=== PATIENT | male | born 1985 | race Caucasian/White ===

== ENCOUNTER 2016-09-24 10:27 | Observation (INO) | payer BC ==
[2016-09-24] MEDS ORDERED: ASPIRIN 81 MG CHEW PO STA (11:18)
[2016-09-24] MEDS ORDERED: NITROGLYCERIN OINT 1 INCH/GM PACKET TOPICAL STA (11:18)
[2016-09-24] MEDS ORDERED: MAG HYDROX/AL HYDROX/SIMETH 30 ML, HYOSCYAMINE ELIXIR 10 ML, CIMETIDINE HCL 300 MG, LID... PO STA ×4 (11:19)
[2016-09-24 11:46] LABS: Basophils % (A) 0 %; CH 29.7; CHCM 35.8; Eosinophils % (A) 1 %; HCT 43.8 % (39.0-53.0); HDW 2.65; HGB 15.5 gm/dL (13.0-17.5); Luc # (Auto) 0.13; Luc % (Auto) 2; Lymphocytes # (A) 1.1 k/uL (1.0-4.8); Lymphocytes % (A) 20 %; MCH 29.5 pg (25.0-35.0); MCHC 35.4 g/dL (31.0-37.0); MCV 83.3 fL (80.0-100.0); Mean Platelet Volume 6.8; Monocytes # (A) 0.6 k/uL (0-1.0); Monocytes % (A) 11 %; Neutrophils # (A) 3.6 k/uL (1.3-7.7); Neutrophils % (A) 66 %; RBC 5.25 m/uL (4.30-5.90); RDW 12.5 % (11.5-15.5); WBC 5.5 k/uL (3.8-10.6)
[2016-09-24 11:53] LABS: ALT 39 U/L (21-72); AST 31 U/L (17-59); Alkaline Phosphatase 68 U/L (38-126); Amylase 40 U/L (30-110); Anion Gap 11 mmol/L; Blood Urea Nitrogen 13 mg/dL (9-20); Calcium 9.5 mg/dL (8.4-10.2); Carbon Dioxide 27 mmol/L (22-30); Chloride 102 mmol/L (98-107); Glucose 90 mg/dL (74-99); Magnesium 1.8 mg/dL (1.6-2.3); Non-African American GFR(MDRD) >60 (>60 ml/min/1.73 sqM); Potassium 3.9 mmol/L (3.5-5.1); Sodium 140 mmol/L (137-145); Total Bilirubin 1.2 mg/dL (0.2-1.3); Total Protein 7.8 g/dL (6.3-8.2)
--- NOTE | 2016-09-24 11:57 | XR ---
EXAMINATION TYPE: XR chest 2V DATE OF EXAM: 09/24/2016 COMPARISON: NONE HISTORY: Chest pain TECHNIQUE: Frontal and lateral views of the chest are obtained. FINDINGS: There is no focal air space opacity. No evidence for pneumothorax. No pleural effusion. The cardiac silhouette size is within normal limits. The osseous structures are grossly intact. IMPRESSION: 1. No acute cardiopulmonary process.
[2016-09-24 12:05] LABS: Creatine Kinase 53 U/L (55-170)
[2016-09-24 12:15] LABS: INR 1.2 (<1.1); Partial Thromboplastin Time 25.4 sec (22.0-30.0); Prothrombin Time 12.2 sec (9.0-12.0)
[2016-09-24 12:18] LABS: Creatine Kinase MB <0.2 ng/mL (0.0-2.4); Troponin I <0.012 ng/mL (0.000-0.034)
--- NOTE | 2016-09-24 14:18 | ED ---
General Adult HPI - General Chief complaint: Recheck/Abnormal Lab/Rx Stated complaint: heartburn/pain in right side of neck Time Seen by Provider: 09/24/16 11:03 Source: patient Mode of arrival: ambulatory Limitations: no limitations - History of Present Illness Initial comments: 31-year-old white male presents with a complaint of some chest pain which is described as a midsternal burning type of sensation. This started last evening. The patient also has numbness and pain going down his right arm. He denies any previous similar incidents. He has had occasional shortness of breath. He denies any previous cardiac history but does have a family history. His grandfather apparently had a myocardial infarction in his 50s. He denies any leg pain or swelling or history of DVT or PE. No other complaints or modifying factors. - Related Data Home Medications Medication Instructions Recorded Confirmed No Known Home Medications [No 09/24/16 09/24/16 Known Home Medications] Allergies Allergy/AdvReac Type Severity Reaction Status Date / Time No Known Allergies Allergy Verified 09/24/16 10:45 Review of Systems ROS Statement: Those systems with pertinent positive or pertinent negative responses have been documented in the HPI. ROS Other: All systems not noted in ROS Statement are negative. Past Medical History Past Medical History: No Reported History History of Any Multi-Drug Resistant Organisms: None Reported Past Surgical History: No Surgical Hx Reported Past Psychological History: No Psychological Hx Reported Smoking Status: Never smoker Past Alcohol Use History: None Reported Past Drug Use History: None Reported General Exam - General Exam Comments Initial Comments: GENERAL: The patient is well nourished and well hydrated. VITAL SIGNS: Heart rate, blood pressure, respiratory rate reviewed as recorded in nurse's notes. EYES: Pupils are round and reactive. Extraocular movements are intact. No conjunctival / lid redness or swelling. ENT: No external evidence of injury, swelling, or ecchymosis. Airway is patent. Throat is clear. NECK: Nontender. No swelling or evidence of injury. No subcutaneous emphysema. Trachea is midline. No thyroid mass. HEART: Regular rate and rhythm. Good peripheral pulses. LUNGS/CHEST: Breath sounds clear and equal bilaterally. No rales, rhonchi, or wheezes. No ecchymosis, subcutaneous emphysema, or tenderness. ABDOMEN: Abdomen soft without tenderness. No palpable masses or organomegaly. No peritoneal signs. No abdominal wall swelling or ecchymosis. EXTREMITIES: No extremity tenderness. Normal muscle tone and function. No thoracolumbar tenderness. NEUROLOGIC: Sensation is grossly intact. Cranial nerve exam reveals face is symmetrical, tongue is midline, speech is clear. SKIN: No abrasions or ecchymosis is noted. No induration or masses noted. PSYCHIATRIC: Alert and oriented. Appropriate behavior and judgment. Limitations: no limitations Course Vital Signs 09/24/16 09/24/16 09/24/16 10:39 11:02 11:35 Temperature 97.3 F L Pulse Rate 70 83 78 Respiratory 17 16 20 Rate Blood Pressure 134/83 133/80 123/83 O2 Sat by Pulse 99 Oximetry 09/24/16 14:07 Temperature 98.2 F Pulse Rate 66 Respiratory 16 Rate Blood Pressure 129/74 O2 Sat by Pulse 98 Oximetry Medical Decision Making - Medical Decision Making The patient was seen and examined. All diagnostics were reviewed. The EKG shows a normal sinus rhythm at a rate of 72. No acute ST-T wave changes are identified. The SD interval is 142, QRS duration is 92, and QTC intervals 420. The chest x-ray does not show any acute processes. The cardiac profile labs are within normal limits. He is feeling somewhat improved after aspirin and Nitropaste and a GI cocktail. The possibility of acute coronary syndrome still is possible. The possibility of reflux is also a possibility. It is felt as though he did require admission to the hospital for further treatment. The case is discussed with Dr. Stoddard and she is agreeable to admission and initial orders are obtained. - Lab Data Result diagrams: 09/24/16 11:30 09/24/16 11:30 Lab Results 09/24/16 09/24/16 09/24/16 Range/Units 11:30 11:30 11:30 WBC 5.5 (3.8-10.6) k/uL RBC 5.25 (4.30-5.90) m/uL Hgb 15.5 (13.0-17.5) gm/dL Hct 43.8 (39.0-53.0) % MCV 83.3 (80.0-100.0) fL MCH 29.5 (25.0-35.0) pg MCHC 35.4 (31.0-37.0) g/dL RDW 12.5 (11.5-15.5) % Plt Count 175 (150-450) k/uL Neutrophils % 66 % Lymphocytes % 20 % Monocytes % 11 % Eosinophils % 1 % Basophils % 0 % Neutrophils # 3.6 (1.3-7.7) k/uL Lymphocytes # 1.1 (1.0-4.8) k/uL Monocytes # 0.6 (0-1.0) k/uL Eosinophils # 0.0 (0-0.7) k/uL Basophils # 0.0 (0-0.2) k/uL PT (9.0-12.0) sec INR (<1.1) APTT (22.0-30.0) sec Sodium 140 (137-145) mmol/L Potassium 3.9 (3.5-5.1) mmol/L Chloride 102 (98-107) mmol/L Carbon Dioxide 27 (22-30) mmol/L Anion Gap 11 mmol/L BUN 13 (9-20) mg/dL Creatinine 1.04 (0.66-1.25) mg/dL Est GFR (MDRD) Af Amer >60 (>60 ml/min/1.73 sqM) Est GFR (MDRD) Non-Af >60 (>60 ml/min/1.73 sqM) Glucose 90 (74-99) mg/dL Calcium 9.5 (8.4-10.2) mg/dL Magnesium 1.8 (1.6-2.3) mg/dL Total Bilirubin 1.2 (0.2-1.3) mg/dL AST 31 (17-59) U/L ALT 39 (21-72) U/L Alkaline Phosphatase 68 (38-126) U/L Total Creatine Kinase 53 L (55-170) U/L CK-MB (CK-2) <0.2 (0.0-2.4) ng/mL CK-MB (CK-2) Rel Index Troponin I <0.012 (0.000-0.034) ng/mL Total Protein 7.8 (6.3-8.2) g/dL Albumin 4.8 (3.5-5.0) g/dL Amylase 40 (30-110) U/L Lipase 38 (23-300) U/L 09/24/16 Range/Units 11:30 WBC (3.8-10.6) k/uL RBC (4.30-5.90) m/uL Hgb (13.0-17.5) gm/dL Hct (39.0-53.0) % MCV (80.0-100.0) fL MCH (25.0-35.0) pg MCHC (31.0-37.0) g/dL RDW (11.5-15.5) % Plt Count (150-450) k/uL Neutrophils % % Lymphocytes % % Monocytes % % Eosinophils % % Basophils % % Neutrophils # (1.3-7.7) k/uL Lymphocytes # (1.0-4.8) k/uL Monocytes # (0-1.0) k/uL Eosinophils # (0-0.7) k/uL Basophils # (0-0.2) k/uL PT 12.2 H (9.0-12.0) sec INR 1.2 (<1.1) APTT 25.4 (22.0-30.0) sec Sodium (137-145) mmol/L Potassium (3.5-5.1) mmol/L Chloride (98-107) mmol/L Carbon Dioxide (22-30) mmol/L Anion Gap mmol/L BUN (9-20) mg/dL Creatinine (0.66-1.25) mg/dL Est GFR (MDRD) Af Amer (>60 ml/min/1.73 sqM) Est GFR (MDRD) Non-Af (>60 ml/min/1.73 sqM) Glucose (74-99) mg/dL Calcium (8.4-10.2) mg/dL Magnesium (1.6-2.3) mg/dL Total Bilirubin (0.2-1.3) mg/dL AST (17-59) U/L ALT (21-72) U/L Alkaline Phosphatase (38-126) U/L Total Creatine Kinase (55-170) U/L CK-MB (CK-2) (0.0-2.4) ng/mL CK-MB (CK-2) Rel Index Troponin I (0.000-0.034) ng/mL Total Protein (6.3-8.2) g/dL Albumin (3.5-5.0) g/dL Amylase (30-110) U/L Lipase (23-300) U/L Disposition Clinical Impression: Chest pain, Unstable angina Disposition: ADMITTED IP TO THIS [facility] Condition: Fair Time of Disposition: 14:18 Decision Date: 09/24/16 Decision Time: 14:18
[2016-09-24] MEDS ORDERED: NITROGLYCERIN SL TABS 0.4 MG TAB SUBLINGUAL PRN (14:19)
[2016-09-24] MEDS: HEPARIN SODIUM,PORCINE 5,000 UNIT/ML 1 ML VIAL SQ SCH (17:21)
[2016-09-24] MEDS: NITROGLYCERIN OINT 1 INCH/GM PACKET TOPICAL SCH (17:28)
[2016-09-24 18:48] LABS: Creatine Kinase 46 U/L (55-170)
[2016-09-24 19:00] LABS: Creatine Kinase MB <0.2 ng/mL (0.0-2.4); Troponin I <0.012 ng/mL (0.000-0.034)
[2016-09-25] MEDS: HEPARIN SODIUM,PORCINE 5,000 UNIT/ML 1 ML VIAL SQ SCH ×2 (00:01→08:43)
[2016-09-25 00:24] LABS: Creatine Kinase 41 U/L (55-170)
[2016-09-25 00:37] LABS: Creatine Kinase MB <0.2 ng/mL (0.0-2.4); Troponin I <0.012 ng/mL (0.000-0.034)
[2016-09-25] MEDS: NITROGLYCERIN OINT 1 INCH/GM PACKET TOPICAL SCH ×2 (04:25→06:53)
[2016-09-25 07:27] LABS: Cholesterol 181 mg/dL (<200); HDL Cholesterol 23 mg/dL (40-60); Triglycerides 202 mg/dL (<150)
[2016-09-25] MEDS ORDERED: ACETAMINOPHEN ORAL SUSP 160 MG/5 ML CUP PO PRN (08:16)
[2016-09-25] MEDS ORDERED: ACETAMINOPHEN ORAL SUSP (PEDS) 3,840 MG/120 ML BOTTLE PO PRN (08:29)
[2016-09-25] MEDS ORDERED: ASPIRIN 325 MG TAB PO SCH (09:00)
--- NOTE | 2016-09-25 09:56 | ECHOF ---
Referral Reason:cp MEASUREMENTS -------- HEIGHT: 182.9 cm WEIGHT: 83.9 kg BP: 129/74 RVIDd: 2.3 cm (< 3.3) IVSd: 1.1 cm (0.6 - 1.1) LVIDd: 4.0 cm (3.9 - 5.3) LVPWd: 1.1 cm (0.6 - 1.1) IVSs: 1.3 cm LVIDs: 3.0 cm LVPWs: 1.3 cm LAESV Index (A-L): 7.36 ml/m Ao Diam: 3.6 cm (2.0 - 3.7) AV Cusp: 2.2 cm (1.5 - 2.6) LA Diam: 2.9 cm (2.7 - 3.8) MV EXCURSION: 21.258 mm (> 18.000) MV EF SLOPE: 83 mm/s (70 - 150) EPSS: 1.4 cm MV E Gordon: 0.63 m/s MV DecT: 394 ms MV A Gordon: 0.58 m/s MV E/A Ratio: 1.09 RAP: 5.00 mmHg RVSP: 7.09 mmHg FINDINGS -------- Resting bradycardia (HR<60bpm). This was a technically adequate study. Overall left ventricular systolic function is normal with, an EF between 55 - 60 %. The right ventricle is normal in size and function. Normal LA size by volume 22+/-6 ml/m2. The right atrium is normal in size. The aortic valve is trileaflet, and appears structurally normal. No aortic stenosis or regurgitation. The mitral valve is normal. There is trace mitral regurgitation. Trace tricuspid regurgitation present. There is no evidence of pulmonary hypertension. The right ventricular systolic pressure, as measured by Doppler, is 7.09mmHg. The pulmonic valve is normal. The aortic root size is normal. Normal inferior vena cava with normal inspiratory collapse consistent with estimated right atrial pressure of 5 mmHg. The pericardium is normal. There is no pericardial effusion. CONCLUSIONS -------- 1. Resting bradycardia (HR<60bpm). 2. The aortic root size is normal. 3. There is no pericardial effusion. 4. This was a technically adequate study. 5. Overall left ventricular systolic function is normal with, an EF between 55 - 60 %. 6. Normal LA size by volume 22+/-6 ml/m2. 7. The aortic valve is trileaflet, and appears structurally normal. No aortic stenosis or regurgitation. 8. There is trace mitral regurgitation. 9. Trace tricuspid regurgitation present. 10. There is no evidence of pulmonary hypertension. 11. The right ventricular systolic pressure, as measured by Doppler, is 7.09mmHg. MACHINE BOSS: Joseph Evans RDCS
--- NOTE | 2016-09-25 10:26 | P.CRDCN ---
History of Present Illness Consult date: 09/25/16 Requesting physician: Ruba Stoddard Consult reason: chest pain Chief complaint: Chest pain History of present illness: This is a pleasant 31-year-old gentleman with no documented history of hypertension, no diabetes, no hyperlipidemia, he is a nonsmoker, no alcohol use. His grandfather did have myocardial infarction at the age of 50. He presents to the hospital with complaints of a heartburn type sensation in the middle of his chest, he also states that he's been getting intermittent pain and numbness down his right arm. He denies any overt chest pressure or heaviness, no difficulty in breathing, no nausea or vomiting. No recent fever. Blood pressure 116/60 heart rate in the 60s, afebrile, 97% on room air. She shows normal sinus rhythm with no acute changes. CBC normal, potassium 3.9, BUN 13, creatinine 1.0. Troponins negative 3. Cholesterol 181, LDL 118, triglycerides 202, HDL 23. S2 x-ray did not reveal any acute cardiopulmonary process. Echocardiogram with Doppler study was performed which revealed an ejection fraction of 55-60%. Past Medical History Past Medical History: No Reported History History of Any Multi-Drug Resistant Organisms: None Reported Past Surgical History: No Surgical Hx Reported Past Anesthesia/Blood Transfusion Reactions: No Reported Reaction Additional Past Anesthesia/Blood Transfusion Reaction / Comment(s): NEVER HAD ANY SURGURY Smoking Status: Never smoker - Past Family History Mother Family Medical History: No Reported History Father Family Medical History: Coronary Artery Disease (CAD), Hyperlipidemia Additional Family Medical History / Comment(s): GRAND FATHER HAD CAD, CARDAIC STENTS ?CABG Sister(s) Family Medical History: Diabetes Mellitus Medications and Allergies Home Medications Medication Instructions Recorded Confirmed Type No Known Home Medications [No 09/24/16 09/24/16 History Known Home Medications] Allergies Allergy/AdvReac Type Severity Reaction Status Date / Time Sulfa (Sulfonamide Allergy Unknown Verified 09/24/16 17:31 Antibiotics) Childhood Physical Exam Vitals: Vital Signs Temp Pulse Pulse Resp BP BP BP 09/25/16 08:00 98.3 F 69 16 117/66 09/25/16 04:00 97.9 F 66 18 117/60 09/25/16 00:00 98.6 F 57 L 18 108/61 09/24/16 20:00 98.8 F 56 L 18 133/69 09/24/16 15:00 98.1 F 75 16 117/70 09/24/16 14:47 98.4 F 69 16 133/81 09/24/16 14:07 98.2 F 66 16 129/74 09/24/16 11:35 78 20 123/83 09/24/16 11:02 83 16 133/80 09/24/16 10:39 97.3 F L 70 17 134/83 Pulse Ox 09/25/16 08:00 97 09/25/16 04:00 98 09/25/16 00:00 100 09/24/16 20:00 97 09/24/16 15:00 97 09/24/16 14:47 97 09/24/16 14:07 98 09/24/16 11:35 09/24/16 11:02 09/24/16 10:39 99 Intake and Output 09/24/16 09/25/16 09/25/16 22:59 06:59 14:59 Other: # Voids 1 Weight 87.5 kg PHYSICAL EXAMINATION: HEENT: [Head is atraumatic, normocephalic. Pupils equal, round. Neck is supple. There is no elevated jugular venous pressure.] HEART EXAMINATION: [Heart S1, S2 normal. No murmur or gallop heard.] CHEST EXAMINATION:[ Lungs are clear to auscultation and precussion. No chest wall tenderness is noted on palpation or with deep breathing.] ABDOMEN: [ Soft, nontender. Bowel sounds are heard. No organomegaly noted]. EXTREMITIES:[ 2+ peripheral pulses with no evidence of peripheral edema and no calf tenderness noted]. NEUROLOGIC [patient is awake, alert and oriented -3.] . Results 09/24/16 11:30 09/24/16 11:30 Cardiac Enzymes 09/24/16 09/24/16 09/24/16 Range/Units 11:30 11:30 18:10 AST 31 (17-59) U/L CK-MB (CK-2) <0.2 <0.2 (0.0-2.4) ng/mL Troponin I <0.012 <0.012 (0.000-0.034) ng/mL 09/24/16 Range/Units 23:43 AST (17-59) U/L CK-MB (CK-2) <0.2 (0.0-2.4) ng/mL Troponin I <0.012 (0.000-0.034) ng/mL Coagulation 09/24/16 Range/Units 11:30 PT 12.2 H (9.0-12.0) sec APTT 25.4 (22.0-30.0) sec Lipids 09/25/16 Range/Units 06:59 Triglycerides 202 H (<150) mg/dL Cholesterol 181 (<200) mg/dL HDL Cholesterol 23 L (40-60) mg/dL CBC 09/24/16 Range/Units 11:30 WBC 5.5 (3.8-10.6) k/uL RBC 5.25 (4.30-5.90) m/uL Hgb 15.5 (13.0-17.5) gm/dL Hct 43.8 (39.0-53.0) % Plt Count 175 (150-450) k/uL Comprehensive Metabolic Panel 09/24/16 Range/Units 11:30 Sodium 140 (137-145) mmol/L Potassium 3.9 (3.5-5.1) mmol/L Chloride 102 (98-107) mmol/L Carbon Dioxide 27 (22-30) mmol/L BUN 13 (9-20) mg/dL Creatinine 1.04 (0.66-1.25) mg/dL Glucose 90 (74-99) mg/dL Calcium 9.5 (8.4-10.2) mg/dL AST 31 (17-59) U/L ALT 39 (21-72) U/L Alkaline Phosphatase 68 (38-126) U/L Total Protein 7.8 (6.3-8.2) g/dL Albumin 4.8 (3.5-5.0) g/dL Current Medications Generic Name Dose Route Start Last Admin Trade Name Freq PRN Reason Stop Dose Admin Acetaminophen 650 mg 09/25/16 08:29 09/25/16 08:39 Tylenol Oral Susp For Peds (Grape) PO 650 mg Q6H PRN Administration Fever Aspirin 325 mg 09/25/16 09:00 09/25/16 08:19 Aspirin PO Not Given DAILY ASYA Heparin Sodium (Porcine) 5,000 unit 09/24/16 16:00 09/25/16 08:43 Heparin SQ Not Given Q8HR [facility] Nitroglycerin 1 inch 09/24/16 18:00 09/25/16 06:53 Nitro-Bid Oint TOPICAL Not Given Q6HR [facility] Nitroglycerin 0.4 mg 09/24/16 14:19 Nitrostat SUBLINGUAL Q5M PRN Chest Pain Intake and Output 09/24/16 09/25/16 09/25/16 22:59 06:59 14:59 Other: # Voids 1 Weight 87.5 kg 09/24/16 11:30 09/24/16 11:30 EKG Interpretations (text) G shows normal sinus rhythm with no acute changes. Assessment and Plan Plan: Assessment and plan #1 chest pain, atypical for acute coronary syndrome. Troponins negative 3. EKG shows normal sinus rhythm with no acute changes. Echocardiogram with Doppler study revealed a normal left ventricular systolic function. #2 cardiac risk factors negative for hypertension, no diabetes, no hyperlipidemia, patient is a nonsmoker. His grandfather did have myocardial infarction at the age of 50. Plan We will discontinue the IV heparin, discontinue Nitropaste. Patient is been recommended undergo stress echocardiographic study today. If negative he may be able to be discharged home from cardiology's perspective. DNP note has been reviewed, I agree with a documented findings and plan of care. Patient was seen and examined.
[2016-09-25 16:13] VITALS: BP 125/79; PULSE 84; RESP 18; TEMP 98.3
--- NOTE | 2016-09-25 21:15 | P.HPIM ---
History of Present Illness H&P Date: 09/25/16 Chief Complaint: Chest pain This document would provide both an H&P and discharge summary This 31-year-old gentleman patient of Dr. Mateo Holt, is currently healthy, without any significant medical problems admitted to the emergency room secondary to chest pain. Patient is concerned eyes there is a significant family history on a grandfather who had an IL at age 50, patient has pain in the midsternal, radiating to the right arm, intermittent numbness noted, patient denies any chest pain on exertion no palpitations, no pleurisy not dyspnea and no cough no fever no chills, patient was seen by cardiology for which recommendations were made for a stress test. Echocardiogram was performed showing ejection fraction of 55-60%, no pulmonary hypertension, EKG failed to reveal any acute changes, troponins 3 were negative, CBC is normal, chemistries are normal triglycerides elevated at 202 LDL is 118 HDL low at 23 chest x-ray failed to reveal any acute processes, patient is currently undergoing a stress echocardiogram when I visited him in his room Review of Systems Constitutional: Reports as per HPI, Denies anorexia, Denies chills, Denies chronic headaches, Denies chronic pain, Denies daytime sleepiness, Denies fatigue, Denies fever, Denies lethargy, Denies malaise, Denies night sweats, Denies poor appetite, Denies sweats, Denies weakness, Denies weight gain, Denies weight loss Ears, nose, mouth and throat: Reports as per HPI, Denies ant. neck pain, Denies bleeding gums, Denies dental pain, Denies dysphagia, Denies epistaxis, Denies headache, Denies hoarseness, Denies mouth pain, Denies nasal congestion, Denies nasal discharge, Denies neck fullness/pressure, Denies neck lump, Denies nose pain, Denies odynophagia, Denies post-nasal drip, Denies sinus pain, Denies sinus pressure, Denies swelling in mouth, Denies swelling in throat, Denies sore throat, Denies vertigo, Denies voice changes Cardiovascular: Reports as per HPI, Reports chest pain, Denies claudication, Denies decreased exercise tolerance, Denies dyspnea on exertion, Denies edema, Denies high blood pressure, Denies irregular heart beat, Denies leg edema, Denies lightheadedness, Denies orthopnea, Denies palpitations, Denies paroxysmal nocturnal dyspnea, Denies phlebitis, Denies rapid heart beat, Denies shortness of breath, Denies syncope Respiratory: Reports as per HPI Gastrointestinal: Reports as per HPI Genitourinary: Reports as per HPI Musculoskeletal: Reports as per HPI Integumentary: Reports as per HPI Neurological: Reports as per HPI Psychiatric: Reports as per HPI Endocrine: Reports as per HPI Hematologic/Lymphatic: Reports as per HPI Allergic/Immunologic: Reports as per HPI Past Medical History Past Medical History: No Reported History History of Any Multi-Drug Resistant Organisms: None Reported Past Surgical History: No Surgical Hx Reported Past Anesthesia/Blood Transfusion Reactions: No Reported Reaction Additional Past Anesthesia/Blood Transfusion Reaction / Comment(s): NEVER HAD ANY SURGURY Smoking Status: Never smoker - Past Family History Mother Family Medical History: No Reported History Father Family Medical History: Coronary Artery Disease (CAD), Hyperlipidemia Additional Family Medical History / Comment(s): GRAND FATHER HAD CAD, CARDAIC STENTS ?CABG Sister(s) Family Medical History: Diabetes Mellitus Medications and Allergies Home Medications Medication Instructions Recorded Confirmed Type No Known Home Medications [No 09/24/16 09/24/16 History Known Home Medications] Allergies Allergy/AdvReac Type Severity Reaction Status Date / Time Sulfa (Sulfonamide Allergy Unknown Verified 09/24/16 17:31 Antibiotics) Childhood Physical Exam Vitals: Vital Signs Temp Pulse Pulse Resp BP BP BP 09/25/16 08:00 98.3 F 69 16 117/66 09/25/16 04:00 97.9 F 66 18 117/60 09/25/16 00:00 98.6 F 57 L 18 108/61 09/24/16 20:00 98.8 F 56 L 18 133/69 09/24/16 15:00 98.1 F 75 16 117/70 09/24/16 14:47 98.4 F 69 16 133/81 09/24/16 14:07 98.2 F 66 16 129/74 09/24/16 11:35 78 20 123/83 09/24/16 11:02 83 16 133/80 09/24/16 10:39 97.3 F L 70 17 134/83 Pulse Ox 09/25/16 08:00 97 09/25/16 04:00 98 09/25/16 00:00 100 09/24/16 20:00 97 09/24/16 15:00 97 09/24/16 14:47 97 09/24/16 14:07 98 09/24/16 11:35 09/24/16 11:02 09/24/16 10:39 99 Intake and Output 09/24/16 09/25/16 09/25/16 22:59 06:59 14:59 Other: # Voids 1 Weight 87.5 kg As per cardiology examination - Constitutional General appearance: cooperative, no acute distress - EENT Eyes: anicteric sclerae, PERRLA, dentition normal ENT: NA/AT - Neck Neck: normal ROM - Respiratory Respiratory: bilateral: CTA - Cardiovascular Rhythm: regular Heart sounds: normal: S1, S2 - Gastrointestinal General gastrointestinal: normal bowel sounds, soft - Integumentary Integumentary: normal, normal turgor - Neurologic Neurologic: CNII-XII intact - Psychiatric Psychiatric: A&O x's 3, appropriate affect, intact judgment & insight Results CBC & Chem 7: 09/24/16 11:30 09/24/16 11:30 Labs: Abnormal Lab Results - Last 24 Hours (Table) 09/24/16 09/24/16 09/24/16 Range/Units 11:30 11:30 18:10 PT 12.2 H (9.0-12.0) sec Total Creatine Kinase 53 L 46 L (55-170) U/L Triglycerides (<150) mg/dL LDL Cholesterol, Calc (0-99) mg/dL HDL Cholesterol (40-60) mg/dL 09/24/16 09/25/16 Range/Units 23:43 06:59 PT (9.0-12.0) sec Total Creatine Kinase 41 L (55-170) U/L Triglycerides 202 H (<150) mg/dL LDL Cholesterol, Calc 118 H (0-99) mg/dL HDL Cholesterol 23 L (40-60) mg/dL Laboratory Results WBC 5.5 k/uL (3.8-10.6) 09/24/16 11:30 RBC 5.25 m/uL (4.30-5.90) 09/24/16 11:30 Hgb 15.5 gm/dL (13.0-17.5) 09/24/16 11:30 Hct 43.8 % (39.0-53.0) 09/24/16 11:30 MCV 83.3 fL (80.0-100.0) 09/24/16 11:30 MCH 29.5 pg (25.0-35.0) 09/24/16 11:30 MCHC 35.4 g/dL (31.0-37.0) 09/24/16 11:30 RDW 12.5 % (11.5-15.5) 09/24/16 11:30 Plt Count 175 k/uL (150-450) 09/24/16 11:30 Neutrophils % 66 % 09/24/16 11:30 Lymphocytes % 20 % 09/24/16 11:30 Monocytes % 11 % 09/24/16 11:30 Eosinophils % 1 % 09/24/16 11:30 Basophils % 0 % 09/24/16 11:30 Neutrophils # 3.6 k/uL (1.3-7.7) 09/24/16 11:30 Lymphocytes # 1.1 k/uL (1.0-4.8) 09/24/16 11:30 Monocytes # 0.6 k/uL (0-1.0) 09/24/16 11:30 Eosinophils # 0.0 k/uL (0-0.7) 09/24/16 11:30 Basophils # 0.0 k/uL (0-0.2) 09/24/16 11:30 PT 12.2 sec (9.0-12.0) H 09/24/16 11:30 INR 1.2 (<1.1) 09/24/16 11:30 APTT 25.4 sec (22.0-30.0) 09/24/16 11:30 Sodium 140 mmol/L (137-145) 09/24/16 11:30 Potassium 3.9 mmol/L (3.5-5.1) 09/24/16 11:30 Chloride 102 mmol/L (98-107) 09/24/16 11:30 Carbon Dioxide 27 mmol/L (22-30) 09/24/16 11:30 Anion Gap 11 mmol/L 09/24/16 11:30 BUN 13 mg/dL (9-20) 09/24/16 11:30 Creatinine 1.04 mg/dL (0.66-1.25) 09/24/16 11:30 Est GFR (MDRD) Af Amer >60 (>60 ml/min/1.73 sqM) 09/24/16 11:30 Est GFR (MDRD) Non-Af >60 (>60 ml/min/1.73 sqM) 09/24/16 11:30 Glucose 90 mg/dL (74-99) 09/24/16 11:30 Calcium 9.5 mg/dL (8.4-10.2) 09/24/16 11:30 Magnesium 1.8 mg/dL (1.6-2.3) 09/24/16 11:30 Total Bilirubin 1.2 mg/dL (0.2-1.3) 09/24/16 11:30 AST 31 U/L (17-59) 09/24/16 11:30 ALT 39 U/L (21-72) 09/24/16 11:30 Alkaline Phosphatase 68 U/L (38-126) 09/24/16 11:30 Total Creatine Kinase 41 U/L (55-170) L 09/24/16 23:43 CK-MB (CK-2) <0.2 ng/mL (0.0-2.4) 09/24/16 23:43 CK-MB (CK-2) Rel Index 09/24/16 23:43 Troponin I <0.012 ng/mL (0.000-0.034) 09/24/16 23:43 Total Protein 7.8 g/dL (6.3-8.2) 09/24/16 11:30 Albumin 4.8 g/dL (3.5-5.0) 09/24/16 11:30 Triglycerides 202 mg/dL (<150) H 09/25/16 06:59 Cholesterol 181 mg/dL (<200) 09/25/16 06:59 LDL Cholesterol, Calc 118 mg/dL (0-99) H 09/25/16 06:59 HDL Cholesterol 23 mg/dL (40-60) L 09/25/16 06:59 Amylase 40 U/L (30-110) 09/24/16 11:30 Lipase 38 U/L (23-300) 09/24/16 11:30 Thrombosis Risk Factor Assmnt - Choose All That Apply Any of the Below Risk Factors Present?: No Other Risk Factors: No Other congenital or acquired thrombophilia - If yes, enter type in comment: No Thrombosis Risk Factor Assessment Level: Very Low Risk Assessment and Plan Plan: 1. Atypical chest pain with significant family history no current risk factors such as diabetes mellitus hyperlipidemia and hypertension, he is a nonsmoker and no alcohol use, patient was seen by cardiology for which she was requested to undergo a stress test, echocardiogram was performed earlier showing ejection fraction of 55-60%, LV function, he underwent a stress echocardiogram which was reported to be negative, lipase was negative patient was requested to see his PCP for follow-up in 1 week no medications recommended by cardiology 2. Family history of IL at age 50 grand father
--- NOTE | 2016-09-26 09:30 | ECHOS ---
DATE OF SERVICE: 09/25/2016 STRESS ECHOCARDIOGRAM INDICATION: Chest pain. BASELINE HEART RATE: 84 BASELINE BLOOD PRESSURE: 126/81 MAXIMUM HEART RATE: 175 MAXIMUM BLOOD PRESSURE: 153/90 85% MPHR: 162 100% MPHR: 171 METs: 11.1 MAX STAGE REACHED: III TOTAL EXERCISE TIME: 9 minutes and 45 seconds. The patient was exercised for a total period of 9 minutes and 45 seconds. Peak heart rate of 175 was achieved. Maximum blood pressure of 153/90 mmHg was noted. The patient did not complain of any chest pain during the test. Resting EKG shows normal sinus rhythm with normal NC interval and QRS duration and normal ST-T waves. No ST segment depression suggestive of ischemia is noted. The baseline echocardiographic images reveals normal left ventricular chamber size with normal left ventricular systolic function. In the immediate postexercise period, normal increase in the wall thickness and contractility is noted. FINAL IMPRESSION: This stress echocardiographic study is negative for stress induced ischemia. The EKG portion of the stress test is not suggestive of ischemia. The patient's exercise tolerance is normal. ATUL
== END 2016-09-25 16:49 | disposition home or self-care (01) ==
LOC: EC 10:27 → 3OBS 14:22
PROVIDERS: ADMIT Family Medicine; ATTEND Family Medicine
DX: R07.89 Other chest pain (principal); R12 Heartburn; R20.0 Anesthesia of skin; Z82.49 Family history of ischemic heart disease and other diseases of the circulatory system; Z83.3 Family history of diabetes mellitus; Z88.2 Allergy status to sulfonamides
CPT/HCPCS: 99285; 96374; 96376; 36415; 94760; 93005; 93017; 93306; 93350; 80061; 80053; 82150; 82550; 82553; 83690; 83735; 84484; 85025; 85610; 85730; 71020; G0378 ×2; J1644 ×2